=== PATIENT | female | born 1990 | race Caucasian/White ===

== ENCOUNTER 2017-05-14 00:03 | Emergency (ER) | payer OTHER ==
[~2017-05-14] VITALS: Ht 170.2 cm; Wt 65.8 kg
[~2017-05-14 00:03] MED LIST: BIRTH CONTROL
[2017-05-14] MEDS ORDERED: FISH OIL 1,001000 M2 PO (00:50)
[2017-05-14] MEDS ORDERED: MULTIVITAMINS1 EAC7 PO (00:50)
[2017-05-14] MEDS ORDERED: NORCO 5-325 TA1 EACH PO (01:47)
[2017-05-14] MEDS ORDERED: DOXYCYCLINE 10100 MG PO (01:48)
[2017-05-14 02:06] VITALS: BP 126/74
== END 2017-05-14 02:05 | disposition home or self-care (01) ==
LOC: ER 00:03
DX: N76.4 Abscess of vulva (principal); Z88.0 Allergy status to penicillin